=== PATIENT | female | born 1985 | race Caucasian/White ===

== ENCOUNTER 2020-07-09 07:31 | Outpatient (CLI) | payer SELFPAY | END 2020-07-09 07:32 | disposition EMS.NT | LOC: EMS 07:31 | DX: R42 Dizziness and giddiness (principal) ==

== ENCOUNTER 2020-10-24 08:00 | Outpatient (CLI) | payer OTHER | END 2020-10-24 23:59 | disposition home or self-care (01) | LOC: LAB.N 08:00 | PROVIDERS: ATTEND Family Medicine | DX: R39.9 Unspecified symptoms and signs involving the genitourinary system (principal) | CPT/HCPCS: 87086; 87181 ==

== ENCOUNTER 2020-10-25 09:58 | Outpatient (CLI) | payer OTHER | END 2020-10-25 09:59 | disposition EMS.NT | LOC: EMS 09:58 | DX: F41.9 Anxiety disorder, unspecified (principal) ==

== ENCOUNTER 2021-11-11 09:24 | Outpatient (CLI) | payer OTHER ==
[2021-11-11 09:59] VITALS: BP 120/80
--- NOTE | 2021-11-11 09:59 | SLEEP CARE CONSULTATION ---
Information from patient questionnaire entered by Tim Zacarias. I have reviewed and concur with the information entered by Tim Zacarias. This document represents the service I personally performed and the decisions made by me, Pita Anand MD, [facility]. History of Present Illness Service Date and Time: 11/11/2021 09 Reason for Visit: New patient Chief Complaint: reports: Unrefreshed sleep, Fatigue Date of Onset: 2+ YEARS Usual bedtime: 9-10PM Time it takes to fall asleep: 10 MINUTES Snores at night: Yes (SOMETIMES) Sleeps alone due to snoring: No Number of times waking at night: 3-4 Reasons for waking at night: reports: Choking, Other (SOMETIMES WAKE UP COUGHING/CHOKING ) Toss, Turn, or Twitch while sleeping: Yes Recalls having dreams: Yes (MINIMALLY) Usually gets out of bed at: 530AM Feels refreshed in the morning: No Morning headache: No Sleepy or fatigued during the day: Yes Ever fallen asleep while driving: No Takes day naps: Yes (ON WEEKENDS) Dreams during day naps: No Prior sleep studies: No Additional HPI information: I have the pleasure of seeing Ms. Harrison today regarding the possibility of her having obstructive sleep apnea. As you know, she is a 36-year-old lady who complains of persistent fatigue and excessive daytime sleepiness for at least 2 years. She gained 50 lbs. She has been told that she snores loudly and irregularly at night. She has never been observed to stop breathing in her sleep. Her can still sleep in the same bed. She can recall waking up on the average of 3 - 4 times during the night. Most of the time she wakes up because of no apparent reason. She has awakened occasionally because of her own snoring, choking, and having to gasp for air. There is a lot of tossing and turning in her sleep. Rarely and she recall having dreams. In the morning she usually gets up out of the bed around 5:30 a.m. not feeling refreshed nor rested. She usually does not have a morning headache. During the day she complains of feeling sleepy and fatigued. Her score on Seymour Sleepiness Scale is 8 out of 24. She never has fallen asleep while driving nor has had any accident due to sleepiness. She usually does not take naps during the day. She denies having impaired concentration during the day. 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 Patient is and lives in . Have you smoked in the past 12 months: Yes Years of smokin Quit date: 2011 Alcohol use: Yes Alcohol amount and frequency: 1-2 DRINKS DAILY, BEER/WINE ONLY Caffeine use: No Family History Family history of sleep disordered breathing: Yes Family Hx Sleep Apnea: Mother: Snoring, Father: Snoring, Sleep apnea - Treated Allergies and Home Medications Known drug allergies: No Drug allergies reviewed: Yes Home medication list reviewed: Yes Review of Systems Weight gain over past 5 years: 40 Cardiovascular: reports: palpitations Respiratory: denies: shortness of breath, wheeze, sputum production, chronic cough, other Gastrointestinal: reports: heartburn Urinary: denies: incontinence, frequency, urgency, impotence, other Neurological: denies: headaches, seizure, head trauma, disorientation, speech dysfunction, gait or balance problems, fainting or unconsciousness, other Psychiatric: reports: anxiety, depression Ear/Nose/Throat: denies: nasal congestion, sinus problems, nose bleeds, dry mouth/throat, hoarseness, injury to nose, tonsillectomy, wisdom teeth removed, other Endocrine: reports: sluggishness, too hot or cold Musculoskeletal: reports: other (SHOULDER/BACK ALWAYS TENSE) Immunologic: denies: sneezing, rash, itching, allergies to food or environment, other Physical Exam Vital signs obtained and entered by: OBIE BEAN Blood Pressure: 120/80 (LEFT ARM ) Cuff size: regular Heart Rate: 92 O2 Saturation: 99 Height: 5 ft 2 in Weight: 190 lb Body Mass Index: 34.7 BMI Classification: Obese Neck circumference: 17 (INCHES ) Mood/affect: Normal HEENT: No craniofacial malformation Nostrils: patent to airflow Turbinates: normal Septum: midline Mouth and throat: narrow oropharynx Soft palate: long Hard palate: normal Uvula: normal Uvula visualization: 25% Mallampati Class III Tongue: enlarged in size with teeth miles on lateral edges Tonsils: small Chin and jaw: normal size and position Neck: normal w/o lymphadenopathy or thyromegaly Heart: regular rate and rhythm Lungs: clear bilaterally Extremities: no edema or clubbing Neurologic: intact Impression and Plan IMPRESSION: 1. Obstructive Sleep Apnea-Hypopnea Syndrome, as evident by history of loud and irregular snoring, frequent awakenings during the night, nocturnal choking, unrefreshed sleep, and daytime hypersomnolence. Narrow oropharynx and obesity are common predisposing factors for obstructive sleep apnea-hypopnea syndrome. I recommend proceeding to polysomnography to confirm the diagnosis and to assess severity. If she has significant sleep disordered breathing, a manual CPAP titration study will also be performed to find the optimal treatment pressure. I informed the patient of what the sleep studies involve and after some discussion, she agreed to proceed. Plan: 1. Schedule polysomnography and return in 1 to 2 weeks after the study to discuss result and initiate therapy. 2. Avoid long distance driving or when feeling sleepy. 3. Avoid alcohol, sedative and muscle relaxant around bedtime. 4. Attempt to lose weight. Counseling Topics: Weight control Follow up with Sleep Care in: 1-2 months Visit Type: In Office Time Spent with Patient (minutes): 15 Provider Statement: I spent 100% of the Face to Face Visit with the patient with greater than 50% spent counseling the patient and coordination of care.
== END 2021-11-11 09:25 | disposition home or self-care (01) ==
LOC: SC 09:24
PROVIDERS: ATTEND Internal Medicine Pulmonary Disease
DX: R06.83 Snoring (principal); G47.8 Other sleep disorders; R53.83 Other fatigue; E66.9 Obesity, unspecified; Z68.34 Body mass index [BMI] 34.0-34.9, adult; Z87.891 Personal history of nicotine dependence
CPT/HCPCS: 99202; 99212

== ENCOUNTER 2021-12-05 20:40 | Outpatient (CLI) | payer OTHER | END 2021-12-05 20:41 | disposition home or self-care (01) | LOC: SC 20:40 | PROVIDERS: ATTEND Internal Medicine Pulmonary Disease | DX: G47.33 Obstructive sleep apnea (adult) (pediatric) (principal); E66.9 Obesity, unspecified; Z68.34 Body mass index [BMI] 34.0-34.9, adult | CPT/HCPCS: 95810 ==

== ENCOUNTER 2021-12-26 12:43 | Outpatient (CLI) | payer OTHER ==
--- NOTE | 2021-12-26 13:18 | SLEEP CARE CONSULTATION ---
Information from patient questionnaire entered by Rica George. I have reviewed and concur with the information entered by Rica George. This document represents the service I personally performed and the decisions made by , Kiki Arenas ARNP. History of Present Illness Service Date and Time: 12/26/2021 1243 Initial Dighton Sleepiness Scale score: 8 (11/08/21) Current Dighton Sleepiness Scale score: 9 (12/26/2021) Additional HPI information: AHMET MORALES returns for follow up and results of the recently performed polysomnography. I explained the pathophysiology behind obstructive sleep apnea. We then spent quite a bit of time discussing different treatment options. For mild obstructive sleep apnea, surgery and oral appliance are alternatives to nasal CPAP therapy but in moderate or severe cases, nasal CPAP is the most effective and reliable treatment. Because apnea is primarily in supine position, then positional management therapy could be effective. Methods discussed such as positioning with pillows to prevent supine sleep. I reviewed the impact of weight changes on sleep apnea and strongly recommended losing weight. Patient counseled not drink alcohol less than 4 hours before bedtime as it can increase snoring and apnea. Patient was cautioned about risks of drowsy driving until sleepiness symptoms resolve. Patient denies drowsy driving. Sleep Study - Results Type of Sleep Study: Polysomnography (COMPLETED 12/05/2021) Prior sleep studies: No Polysomnography/Home Sleep Study results: IMPRESSION: The quality of the study is good. The patient had normal sleep efficiency. The sleep architecture was normal as well. Respiratory monitoring showed mild obstructive sleep apnea- hypopnea (AHI = 9.5) associated with frequent oxyhemoglobin desaturation and mild hypoxia (preston oxygen saturation of 86%). The respiratory events occurred almost exclusively during supine sleep (supine AHI = 15.0; non- supine = 2.64). Snore was infrequent and light in intensity. There was no significant periodic leg movement of sleep. Cardiac rhythm was normal sinus rhythm without significant arrhythmia. No abnormal behavior (parasomnia) observed during the night. Allergies and Home Medications Drug allergies reviewed: Yes (NKDA) Home medication list reviewed: Yes (no changes) Review of Systems Review of systems same as previous: Yes (no changes) Physical Exam Vital signs obtained and entered by: RICA Omalley MA Blood Pressure: 124/72 (LEFT ARM) Cuff size: regular Heart Rate: 101 O2 Saturation: 98 Height: 5 ft 2 in Weight: 194 lb Body Mass Index: 35.4 BMI Classification: Obese Impression and Plan 1. Obstructive Sleep Apnea-Hypopnea Syndrome, mild, with lowest oxygen saturation of 86%. Obviously this is the cause of the patients symptoms of unrefreshed sleep, and excessive daytime sleepiness. Positive pressure therapy could benefit anxiety and depression. Since patients apnea is primarily in supine position, patient advised to try positional therapy and agreed with plan. She is also advised to lose weight as this will reduce snoring and apnea. Follow up is scheduled for one month to check effectiveness and if further evaluation indicated. 2. Obesity, unspecified. Currently patients BMI is 35.4. Obesity increases the risk of apnea, CPAP pressure requirements and overall health risks especially cardiovascular and diabetes. Thus patient is advised to lose weight. * Positional therapy * Attempt to lose weight. * Avoid alcohol consumption near bedtime. * Avoid supine sleep * Return in 1-2 months. I will assess response to therapy and compliance at that time. Counseling Topics: Sleeping position, Weight loss health impact Visit Type: In Office Time Spent with Patient (minutes): 20 Provider Statement: I spent 100% of the Face to Face Visit with the patient with greater than 50% spent counseling the patient and coordination of care.
[2021-12-26 13:19] VITALS: BP 124/72
== END 2021-12-26 12:44 | disposition home or self-care (01) ==
LOC: SC 12:43
PROVIDERS: ATTEND Nurse Practitioner Family
DX: G47.33 Obstructive sleep apnea (adult) (pediatric) (principal); E66.9 Obesity, unspecified; Z68.35 Body mass index [BMI] 35.0-35.9, adult
CPT/HCPCS: 99212; 99213

== ENCOUNTER 2022-05-20 08:00 | Outpatient (CLI) | payer OTHER ==
[2022-05-20 18:19] LABS: BACTERIAL VAGINOSIS DNA NEGATIVE (NEGATIVE); CANDIDA GLABRATA DNA NEGATIVE (NEGATIVE); CANDIDA GROUP DNA NEGATIVE (NEGATIVE); CANDIDA KRUSEI DNA NEGATIVE (NEGATIVE); TRICHOMONAS VAGINALIS DNA NEGATIVE (NEGATIVE)
[2022-05-20 20:18] LABS: CHLAMYDIA TRACHOMATIS DNA NEGATIVE (NEGATIVE); NEISSERIA GONORRHOEAE DNA NEGATIVE (NEGATIVE)
== END 2022-05-20 23:59 | disposition home or self-care (01) ==
LOC: LAB.WC 08:00
PROVIDERS: ATTEND Obstetrics & Gynecology
DX: N89.8 Other specified noninflammatory disorders of vagina (principal); Z11.3 Encounter for screening for infections with a predominantly sexual mode of transmission
CPT/HCPCS: 81514; 87491; 87591; 87661